=== PATIENT | female | born 1960 | race African-American/Black ===

== ENCOUNTER 2018-11-03 18:04 | Observation (INO) | payer SELFPAY ==
[~2018-11-03] VITALS: Ht 160 cm; Wt 72.1 kg
[2018-11-03 18:39] LABS: BASOPHILS 0.2 % (0-2); EOSINOPHILS 0.2 % (0-7); HEMATOCRIT 35.2 % (36.0-48.0); HEMOGLOBIN 11.8 g/dL (12-16); IMMATURE GRANULOCYTES 0.4 % (0-5); LYMPHOCYTES 6.3 % (15-50); MCH 29.9 pg (26.0-34.0); MCHC 33.5 g/dL (31.0-37.0); MCV 89.3 fL (80.0-100.0); MEAN PLATELET VOLUME 9.7 fL (7.4-10.4); MONOCYTES 3.4 % (2-11); NEUTROPHILS 89.5 % (40-80); PLATELET COUNT 203 10x3/uL (130-400); RBC 3.94 10x6/uL (4.00-5.40); RDW 12.8 % (11.5-14.5); WBC 12.1 10x3/uL (4.8-10.8)
[2018-11-03 19:01] LABS: ALBUMIN 3.4 g/dL (3.4-5.0); ALKALINE PHOSPHATASE 72 U/L (46-116); ALT (SGPT) 28 U/L (10-68); BILIRUBIN - TOTAL 0.41 mg/dL (0.2-1.3); CALC OSMOLALITY 279 mosm/kg (275-300); CALCIUM 8.9 mg/dL (8.5-10.1); CARBON DIOXIDE 22.3 mmol/L (21.0-32.0); CHLORIDE - SERUM 105 mmol/L (98-107); GLUCOSE 118 mg/dL (74-106); POTASSIUM - SERUM 3.4 mmol/L (3.5-5.1); PROTEIN - SERUM 7.9 g/dL (6.4-8.2); SODIUM 139 mmol/L (136-145); UREA NITROGEN 16 mg/dL (7-18); eGFR NON AFRICAN AMERICAN 60 mL/min (90-120)
[2018-11-03 19:05] LABS: AMYLASE - SERUM 53 U/L (25-115); LIPASE 152 U/L (73-393); TROPONIN-I < 0.017 ng/mL (0.000-0.060)
[2018-11-03 19:58] LABS: APPEARANCE CLEAR (CLEAR); BILIRUBIN NEGATIVE (NEGATIVE); COLOR YELLOW (YELLOW); GLUCOSE NEGATIVE (NEGATIVE); KETONE NEGATIVE (NEGATIVE); NITRITE NEGATIVE (NEGATIVE); PROTEIN NEGATIVE (NEGATIVE); UROBILINOGEN NORMAL (NORMAL)
[2018-11-03 19:59] LABS: BACTERIA MODERATE /hpf (NONE SEEN); EPITHELIAL CELLS 0-5 /hpf (0-5); RED CELLS - URINE 0-5 /hpf (0-5); WHITE CELLS - URINE 0-5 /hpf (0-5)
[2018-11-03 20:00] VITALS: BP 133/56
[2018-11-03 21:00] VITALS: BP 130/70
[2018-11-03 22:56] VITALS: BP 128/62
--- NOTE | 2018-11-04 01:23 | NUR ---
PT ARRIVED TO ROOM 2128 PHARMACY PUT IN, PT STATES NO HOME MEDICATIONS. PT HISTORY COMPLETE. PT IS AAO, UP AD AUDREY. LEFT AC 20G STARTED NS AT 100 ORDERED. S1S2 RRR PLACED TELEMETRY ORDERED, 72 NORMAL SINUS. LUNGS CLEAR. ONLY COMPLAINT AT THIS TIME IS LOWER BACK AND BILATERAL FLANK DISCOMFORT. PT IS AFEBRILE ON ADMIT FROM ER 97.6 PT GIVEN A SANDWICH AND MILK. DENIES ANY OTHER NEEDS. NO S/S OF DISTRESS. PT WILL CALL FOR ASSIST WHEN NEEDED. FAMILY AT BEDSIDE. WILL CPOC
[2018-11-04 03:08] VITALS: BP 114/60; BMI 27.3
[2018-11-04 04:00] VITALS: BP 102/60
--- NOTE | 2018-11-04 05:10 | NUR ---
PT ASLEEP. AROUSES TO VERBAL STIMULI. PT HAS NO S/S OF DISTRESS. PT BEDLOW AND CALL LIGHT IN REACH. PT WILL CALL FOR ASSIST WHEN NEEDED.WILL CPOC
--- NOTE | 2018-11-04 07:10 | NUR ---
REPORT RECEIVED FROM INDUSTRIAL AERIAL INSTALLER AND PATIENT CARE ASSUMED. PATIENT SITTING UP IN BED WATCHING TV. PATIENT IS ALERT AND ORIENTED X 4. PATIENT IS STABLE AND VSS. PATIENT DENIES ANY NEEDS OR PAIN. WILL CONTINUE WITH PLAN OF CARE. SR UP X 2 BED IN LOW POSITION AND CALL LIGHT IN REACH.
[2018-11-04 07:36] VITALS: BP 119/50
[2018-11-04 10:33] LABS: BASOPHILS 0.1 % (0-2); EOSINOPHILS 0.3 % (0-7); HEMATOCRIT 33.7 % (36.0-48.0); HEMOGLOBIN 11.4 g/dL (12-16); IMMATURE GRANULOCYTES 0.4 % (0-5); MCH 30.3 pg (26.0-34.0); MCHC 33.8 g/dL (31.0-37.0); MCV 89.6 fL (80.0-100.0); MONOCYTES 6.4 % (2-11); NEUTROPHILS 86.8 % (40-80); PLATELET COUNT 177 10x3/uL (130-400); RBC 3.76 10x6/uL (4.00-5.40); RDW 13.4 % (11.5-14.5); WBC 13.4 10x3/uL (4.8-10.8)
[2018-11-04 10:51] VITALS: Ht 160 cm; Wt 72.1 kg
[2018-11-04 11:00] LABS: ANION GAP 16.4 mmol/L (8-16); CALCIUM 8.3 mg/dL (8.5-10.1); CARBON DIOXIDE 18.9 mmol/L (21.0-32.0); CREATININE - SERUM 0.9 mg/dL (0.6-1.3); MAGNESIUM - SERUM 1.8 mg/dL (1.8-2.4); POTASSIUM - SERUM 3.3 mmol/L (3.5-5.1)
[2018-11-04 11:24] VITALS: BP 120/97
--- NOTE | 2018-11-04 17:04 | MORECARE ---
CASE MANAGEMENT DISCHARGE SUMMARY PATIENT: NEWTON UMANA UNIT: [id number] ADM DATE: 11/03/18 AGE: 57 : 56 SEX: F ROOM/BED: D.6602 AUTHOR: AMANDA YEH PHYSICIAN: REFERRING PHYSICIAN: ANN PLATA MD DATE OF SERVICE: 11/04/18 Discharge Plan Patient Name: NEWTON UMANA Facility: [facility]:[place] : 1960 Planned Disposition: Home Anticipated Discharge Date: 11/05/18 Discharge Date: Expected LOS: 2 Initial Reviewer: [email or web address] Initial Review Date: 11/04/2018 Generated: 11/04/18 6:04 pm DCPIA - Discharge Planning Initial Assessment Updated by [email or web address]: Junior Waddell on 11/04/18 5:03 pm * Is the patient Alert and Oriented? Yes * How many steps to enter\\exit or inside your home? * PCP NONE "GETTING IN WITH DR. SAVAGE "(NOT YET SEEN, NOR MADE APPOINTMENT TO SEE) * [facility] * Preadmission Environment Home with Family * ADLs Independent * Equipment None * Other Equipment NO MEDICAL EQUIPMENT PROVIDER PREFERENCE * List name and contact numbers for known caregivers / representatives who currently or will assist patient after discharge: HYACINTH SCOTT, SISTER, CARLENE - "BOYFRIEND" * Verbal permission to speak to the caregivers and representatives has been obtained from the patient. N/A * Community resources currently utilized None * Please name any agencies selected above. NONE * Additional services required to return to the preadmission environment? No * Can the patient safely return to the preadmission environment? Yes * Has this patient been hospitalized within the prior 30 days at any hospital? No Patient Name: NEWTON UMANA Page [id number] at 1704 All edits/amendments must be made on the electronic document DICTATION DATE: 11/04/181703 ASSISTANT STORE MANAGER OPERATIONS: SANAM 11/04/181703 RPT#: [id number] DC DATE: STATUS: ADM IN [facility] [address] [place] [address] END OF REPORT
--- NOTE | 2018-11-04 17:12 | MORECARE ---
CASE MANAGEMENT DISCHARGE SUMMARY PATIENT: NEWTON UMANA UNIT: [id number] ADM DATE: 11/03/18 AGE: 57 : 56 SEX: F ROOM/BED: D.9450 AUTHOR: RUBA,DOC PHYSICIAN: REFERRING PHYSICIAN: ANN PLATA MD DATE OF SERVICE: 11/04/18 Discharge Plan Patient Name: NEWTON UMANA Facility: [facility]:[place] : 1960 Planned Disposition: Home Anticipated Discharge Date: 11/05/18 Discharge Date: Expected LOS: 2 Initial Reviewer: [email or web address] Initial Review Date: 11/04/2018 Generated: 11/04/18 6:12 pm Comments DCP- Discharge Planning Updated by [email or web address]: Junior Waddell on 11/04/18 4:[address] Patient Name: NEWTON UMANA Admission Status: ER Accout number: [id number] Admission Date: 11-03-2018 : 1960 Admission Diagnosis: Attending: SRINIVASAN PLATA Current LOS: 1 Anticipated DC Date: 11-05-2018 Planned Disposition: Home Primary Insurance: UNINSURED DISCOUNT PLAN Discharge Planning Comments: CM RECEIVED ORDER TO PROVIDE ADVANCE DIRECTIVE INFORMATION. CM MET WITH PT IN ROOM TO DISCUSS DISCHARGE PLANNING AND NEEDS. PT REPORTS LIVING AT HOME INDEPENDENTLY WITH HER "OLD MAN", WHO PT FURTHER DESCRIBED HER BOYFRIEND. PT HAS NO MEDICAL EQUIPMENT AND NO OUTSIDE SERVICES ASSISTING IN THE HOME. CM DISCUSSED AVAILABILITY OF HOME HEALTH, REHAB SERVICES AND MEDICAL EQUIPMENT. PT DENIES DISCHARGE NEEDS, REPORTS HER "OLD MAN" WILL PICK HER UP FOR DISCHARGE HOME. CM PROVIDED AND EXPLAINED HOW TO COMPLETE THE ADVANCE DIRECTIVE PAPERWORK IF DESIRED AND AVAILABILITY OF NOTARY SERVICES TO COMPLETE DURING NORMAL BUSINESS HOURS. PT PLANS TO DISCHARGE HOME WITH HER BOYFRIEND; PT HAS NO ANTICIPATED DISCHARGE NEEDS AT THIS TIME. CM TO FOLLOW AND ASSIST IF NEEDED. Post Manager: Junior Waddell DCPIA - Discharge Planning Initial Assessment Updated by [email or web address]: Junior Waddell on 11/04/18 5:03 pm * Is the patient Alert and Oriented? Yes * How many steps to enter\\exit or inside your home? * PCP NONE "GETTING IN WITH DR. SAVAGE "(NOT YET SEEN, NOR MADE APPOINTMENT TO SEE) * Pharmacy [facility] * Preadmission Environment Home with Family * ADLs Independent * Equipment None * Other Equipment NO MEDICAL EQUIPMENT PROVIDER PREFERENCE * List name and contact numbers for known caregivers / representatives who currently or will assist patient after discharge: HYACINTH SCOTT, SISTER, CARLENE - "BOYFRIEND" * Verbal permission to speak to the caregivers and representatives has been obtained from the patient. N/A * Community resources currently utilized None * Please name any agencies selected above. NONE * Additional services required to return to the preadmission environment? No * Can the patient safely return to the preadmission environment? Yes * Has this patient been hospitalized within the prior 30 days at any hospital? No Last DP export: 11/04/18 4:04 p Patient Name: NEWTON UMANA Page [phone] at 1712 All edits/amendments must be made on the electronic document DICTATION DATE: 11/04/181711 RECOATING MACHINE OPERATOR: SANAM 11/04/181711 RPT#: [id number] DC DATE: STATUS: ADM IN [facility] [address] [place] [address] END OF REPORT
--- NOTE | 2018-11-04 19:26 | NUR ---
RECEIVED REPORT, WILL ASSUME CARE OF PT, DENIES ANY NEEDS AT THIS TIME, BED IS LOW, SRX2, CALL LIGHT IN REACH, WILL CONTINUE PLAN OF CARE
[2018-11-04 20:00] VITALS: BP 128/66
[2018-11-05] VITALS: BP 140/65
--- NOTE | 2018-11-05 02:50 | NUR ---
I have reviewed this patient and I concur with the Shift Assessment completed by the Licensed Practical Nurse today this shift.
[2018-11-05 04:00] VITALS: BP 142/71
--- NOTE | 2018-11-05 07:10 | NUR ---
REPORT RECIEVED FROM TILE DECORATOR AND PATIENT CARE ASSUMED. PATIENT LAYING IN BED ON BACK WITH EYES CLOSED AND BREATHING EVENLY. VSS. WILL CONTINUE WITH PLAN OF CARE. SR UP X 2 BED IN LOW POSITION AND CALL LIGHT IN REACH.
[2018-11-05 08:00] VITALS: BP 138/66
--- NOTE | 2018-11-05 10:00 | NUR ---
PATIENT ASSESSMENT COMPLETED. VSS. PATIENT IS STABLE AND DENIES ANY NEEDS OR PAIN. FAMILY IN ROOM. WILL CONTINUE TO MONITOR. SR UP X 2 BED IN LOW POSITION AND CALL LIGHT IN REACH.
[2018-11-05 12:00] VITALS: BP 107/85
--- NOTE | 2018-11-05 15:46 | NUR ---
PATIENT RESTING IN BED AND VISITING WITH FAMILY. PATIENT DENIES ANY NEEDS OR PAIN. WILL CONTINUE TO MONITOR.
[2018-11-05 16:30] VITALS: BP 148/71
--- NOTE | 2018-11-05 19:20 | NUR ---
RECEIVED REPORT, WILL ASSUME CARE OF PT, PT ASKING WHY SHE IS STILL HERE, SHE SAID SHE HASNT SEEN A , THEN SAID A HERE EARLY THIS AM, TOLD HER SHE WAS STILL ON ANTIBONIC, FAMILY AT BEDSIDE, BED IS LOW, SRX2, CALL LIGHT IN REACH, WILL CONTINUE PLAN OF CARE
[2018-11-05 20:18] VITALS: BP 151/86
[2018-11-06 00:35] VITALS: BP 139/65
--- NOTE | 2018-11-06 00:43 | NUR ---
I have reviewed this patient and I concur with the Shift Assessment completed by the Licensed Practical Nurse today this shift.
[2018-11-06 03:53] VITALS: BP 145/71
[2018-11-06 05:45] LABS: BASOPHILS 0.1 % (0-2); EOSINOPHILS 1.3 % (0-7); HEMOGLOBIN 11.4 g/dL (12-16); IMMATURE GRANULOCYTES 0.5 % (0-5); LYMPHOCYTES 15.6 % (15-50); MCH 29.8 pg (26.0-34.0); MCHC 33.5 g/dL (31.0-37.0); MEAN PLATELET VOLUME 10.1 fL (7.4-10.4); MONOCYTES 12.6 % (2-11); NEUTROPHILS 69.9 % (40-80); RBC 3.82 10x6/uL (4.00-5.40)
[2018-11-06 05:50] LABS: PLATELET COUNT 265 10x3/uL (130-400); WBC 8.8 10x3/uL (4.8-10.8)
[2018-11-06 06:41] LABS: CALC OSMOLALITY 281 mosm/kg (275-300); CALCIUM 8.8 mg/dL (8.5-10.1); CHLORIDE - SERUM 109 mmol/L (98-107); CREATININE - SERUM 0.7 mg/dL (0.6-1.3); GLUCOSE 98 mg/dL (74-106); MAGNESIUM - SERUM 1.7 mg/dL (1.8-2.4); PHOSPHOROUS 3.6 mg/dL (2.5-4.9); POTASSIUM - SERUM 3.7 mmol/L (3.5-5.1); SODIUM 143 mmol/L (136-145); UREA NITROGEN 5 mg/dL (7-18); eGFR NON AFRICAN AMERICAN > 90 mL/min (90-120)
--- NOTE | 2018-11-06 07:30 | NUR ---
A/A/OX4. SITTING UP ON SIDE OF BED TALKING WITH . DENIES ANY PAIN, DISCOMFORT OR NEEDS AND NOW REQUESTS VOICED. ASSESSMENT COMPLETED AND WILL CONTINUE POC.
[2018-11-06 08:00] VITALS: BP 149/76
[2018-11-06 12:30] VITALS: BP 140/63
[2018-11-06 16:30] VITALS: BP 149/73
[2018-11-06] MEDS ORDERED: LEVAQUIN750 MG PO (16:40)
--- NOTE | 2018-11-06 17:33 | NUR ---
DISCHARGE INSTRUCTIONS REVIEWED WITH PT AND VERBALIZES UNDERSTANDING. IV DC'D WITH CATHETER TIP INTACT. LEFT FLOOR VIA W/C WITH ALL PERSONAL BELONGINGS AND LEFT FACILITY VIA PRIVATE VEHICLE WITH .
--- NOTE | 2018-11-07 09:31 | MORECARE ---
CASE MANAGEMENT DISCHARGE SUMMARY PATIENT: NEWTON UMANA UNIT: [id number] ADM DATE: 11/03/18 AGE: 57 : 56 SEX: F ROOM/BED: D.7296 AUTHOR: RUBA,DOC PHYSICIAN: REFERRING PHYSICIAN: ANN PLATA MD DATE OF SERVICE: 11/07/18 Discharge Plan Patient Name: NEWTON UMANA Facility: [facility]:[place] : 1960 Planned Disposition: Home Anticipated Discharge Date: 11/06/18 Discharge Date: 11/06/2018 Expected LOS: 3 Initial Reviewer: [email or web address] Initial Review Date: 11/04/2018 Generated: 11/07/18 10:30 am Comments DCP- Discharge Planning Updated by [email or web address]: Junior Waddell on 11/04/18 4:[address] Patient Name: NEWTON UMANA Admission Status: ER Accout number: [id number] Admission Date: 11-03-2018 : 1960 Admission Diagnosis: Attending: SRINIVASAN PLATA Current LOS: 1 Anticipated DC Date: 11-05-2018 Planned Disposition: Home Primary Insurance: UNINSURED DISCOUNT PLAN Discharge Planning Comments: CM RECEIVED ORDER TO PROVIDE ADVANCE DIRECTIVE INFORMATION. CM MET WITH PT IN ROOM TO DISCUSS DISCHARGE PLANNING AND NEEDS. PT REPORTS LIVING AT HOME INDEPENDENTLY WITH HER "OLD MAN", WHO PT FURTHER DESCRIBED HER BOYFRIEND. PT HAS NO MEDICAL EQUIPMENT AND NO OUTSIDE SERVICES ASSISTING IN THE HOME. CM DISCUSSED AVAILABILITY OF HOME HEALTH, REHAB SERVICES AND MEDICAL EQUIPMENT. PT DENIES DISCHARGE NEEDS, REPORTS HER "OLD MAN" WILL PICK HER UP FOR DISCHARGE HOME. CM PROVIDED AND EXPLAINED HOW TO COMPLETE THE ADVANCE DIRECTIVE PAPERWORK IF DESIRED AND AVAILABILITY OF NOTARY SERVICES TO COMPLETE DURING NORMAL BUSINESS HOURS. PT PLANS TO DISCHARGE HOME WITH HER BOYFRIEND; PT HAS NO ANTICIPATED DISCHARGE NEEDS AT THIS TIME. CM TO FOLLOW AND ASSIST IF NEEDED. Preschool Adviser: Junior Waddell DCPIA - Discharge Planning Initial Assessment Updated by [id number]: Junior Waddell on 11/04/18 5:03 pm * Is the patient Alert and Oriented? Yes * How many steps to enter\\exit or inside your home? * PCP NONE "GETTING IN WITH DR. SAVAGE "(NOT YET SEEN, NOR MADE APPOINTMENT TO SEE) * [facility]acy [facility] * Preadmission Environment Home with Family * ADLs Independent * Equipment None * Other Equipment NO MEDICAL EQUIPMENT PROVIDER PREFERENCE * List name and contact numbers for known caregivers / representatives who currently or will assist patient after discharge: HYACINTH SCOTT, SISTER, CARLENE - "BOYFRIEND" * Verbal permission to speak to the caregivers and representatives has been obtained from the patient. N/A * Community resources currently utilized None * Please name any agencies selected above. NONE * Additional services required to return to the preadmission environment? No * Can the patient safely return to the preadmission environment? Yes * Has this patient been hospitalized within the prior 30 days at any hospital? No Coverage Notice Reviewer: [id number] Pamela Javed Notice Issued Date-Time: 11/06/2018 16:50 Notice Type: IM Discharge Notice Notice Delivered To: Patient Relationship to Patient: Self Machine Set Up Operator Paper Goods Name: Delivery Method: HAND - Hand Delivered Tawana Days: Prior Verbal Notification: Recipient Understood Notice: Yes Recipient Signature: Yes Med Rec Note Co-signed by Attending: Coverage Notice Comment: Last DP export: 11/04/18 4:12 p Patient Name: NEWTON UMANA Page [id number] at 0931 All edits/amendments must be made on the electronic document DICTATION DATE: 11/07/18929 DIRECTOR HEDIS: SANAM 11/07/18929 RPT#: [id number] DC DATE:11/06/18 STATUS: DIS IN [facility] [address] [place] [address] END OF REPORT
== END 2018-11-06 17:34 | disposition home or self-care (01) ==
LOC: D.ER 18:04 → D.M2 23:32 → OBSVTIME 23:32 → D.M2 23:32
PROVIDERS: Family Medicine; ADMIT Emergency Medicine; ATTEND Emergency Medicine
DX: A41.9 Sepsis, unspecified organism (principal); N12 Tubulo-interstitial nephritis, not specified as acute or chronic; B96.20 Unspecified Escherichia coli [E. coli] as the cause of diseases classified elsewhere

== ENCOUNTER 2018-11-24 06:30 | Outpatient (CLI) | payer MEDICAID ==
[~2018-11-24 06:30] MED LIST: LEVAQUIN750 MG PO
[2018-11-24 06:56] LABS: BASOPHILS 0.6 % (0-2); EOSINOPHILS 2.2 % (0-7); HEMATOCRIT 36.2 % (36.0-48.0); HEMOGLOBIN 12.1 g/dL (12-16); IMMATURE GRANULOCYTES 0.4 % (0-5); MCH 29.4 pg (26.0-34.0); MCHC 33.4 g/dL (31.0-37.0); MCV 87.9 fL (80.0-100.0); MEAN PLATELET VOLUME 9.1 fL (7.4-10.4); MONOCYTES 13.3 % (2-11); NEUTROPHILS 41.5 % (40-80); RBC 4.12 10x6/uL (4.00-5.40); RDW 13.4 % (11.5-14.5); WBC 5.1 10x3/uL (4.8-10.8)
[2018-11-24 06:57] LABS: PLATELET COUNT 332 10x3/uL (130-400)
[2018-11-24 07:23] LABS: INR 1.06 (0.85-1.17); PROTIME 13.3 SECONDS (11.6-15.0)
[2018-11-24 07:27] LABS: CALC OSMOLALITY 282 mosm/kg (275-300); CALCIUM 9.4 mg/dL (8.5-10.1); CHLORIDE - SERUM 107 mmol/L (98-107); CREATININE - SERUM 0.8 mg/dL (0.6-1.3); GLUCOSE 83 mg/dL (74-106); POTASSIUM - SERUM 4.2 mmol/L (3.5-5.1); SODIUM 143 mmol/L (136-145); UREA NITROGEN 9 mg/dL (7-18); eGFR NON AFRICAN AMERICAN 78 mL/min (90-120)
[2018-11-24 09:01] VITALS: BP 116/65; BMI 25.4
== END 2018-11-24 14:50 | disposition home or self-care (01) ==
LOC: D.SP 06:30 → D.CT 09:00 → D.SP 14:50
PROVIDERS: Radiology Vascular & Interventional Radiology; ATTEND Urology
DX: N15.1 Renal and perinephric abscess (principal); Z01.812 Encounter for preprocedural laboratory examination

== ENCOUNTER → 2018-12-16 19:21 | Outpatient (CLI) | payer MEDICAID ==
[2018-11-24 09:01] VITALS: BMI 25.4
== END | disposition home or self-care (01) ==
LOC: D.LABREF 19:21
PROVIDERS: ATTEND Urology
DX: N39.0 Urinary tract infection, site not specified (principal)